=== PATIENT | male | born 1985 | race Caucasian/White ===

== ENCOUNTER 2017-04-06 18:54 | Emergency (ER) | payer MEDICAID, OTHER ==
[~2017-04-06] VITALS: Ht 182.9 cm; Wt 86.2 kg
[~2017-04-06 18:54] MED LIST: DOCU-299 PO; IBUP-2213 PO
[2017-04-06 19:22] VITALS: BP 125/81
--- NOTE | 2017-04-06 21:45 | NUR ---
PT TAKEN TO BED 3
--- NOTE | 2017-04-06 21:47 | NUR ---
31 Y/O M W/C/O RECTAL PAIN X TODAY. HX RECURRENT HEMORRHOIDS.ER MD AT BEDSIDE EVALUATING PT.
--- NOTE | 2017-04-06 21:47 | NUR ---
Dr. García evaluating patient at bedside.
--- NOTE | 2017-04-06 21:53 | NUR ---
RECTAK EXAM performed by DR JOHNSTON with ME at bedside for entire examination. Patient tolerated procedure WELL. Patient assisted to position of comfort after examination.
--- NOTE | 2017-04-06 22:10 | NUR ---
Patient discharged with v/s stable. Written and verbal after care instructions given and explained. Patient alert, oriented and verbalized understanding of instructions. Ambulatory with steady gait. All questions addressed prior to discharge. ID band removed. Patient advised to follow up with PMD. Rx of LEONIE HEMORRHOID RECTAL SUPPOSITIRY, NAPROSYN 500 MG given. Patient educated on indication of medication including possible reaction and side effects. Opportunity to ask questions provided and answered.
[2017-04-06 22:12] VITALS: BP 125/81
== END 2017-04-06 22:10 | disposition home or self-care (01) ==
LOC: MED 18:54
DX: K64.8 Other hemorrhoids (principal); Z79.899 Other long term (current) drug therapy
CPT/HCPCS: 99283

== ENCOUNTER 2022-07-20 20:14 | Emergency (ER) | payer OTHER ==
[~2022-07-20] VITALS: Ht 182.9 cm; Wt 89.4 kg
[2022-07-20 20:21] VITALS: BP 165/96
--- NOTE | 2022-07-20 20:30 | NUR ---
PT TO LOBBY
--- NOTE | 2022-07-20 20:31 | NUR ---
CALLED [facility]. PER DISPATCHER WILL HAVE SOMEONE COME OUT.
--- NOTE | 2022-07-20 20:57 | NUR ---
[facility] PD WITH PT
--- NOTE | 2022-07-20 21:00 | NUR ---
PT TAKEN TO CHAIR
--- NOTE | 2022-07-20 22:24 | NUR ---
Pt moved from chair to bed 5
--- NOTE | 2022-07-20 22:44 | NUR ---
pt is awake and alert. he is on monitor by pd for agressive behaviour. ambulatory and room air
[2022-07-20] MEDS ORDERED: LID5T TP (22:58)
[2022-07-20] MEDS ORDERED: ACET-9527 PO (22:58)
[2022-07-20] MEDS ORDERED: IBUP-2213 PO (22:58)
[2022-07-20] MEDS ORDERED: HYDROcodone/APAP 5/325 MG 1 TAB TAB PO ONE (23:00)
--- NOTE | 2022-07-20 23:10 | NUR ---
Patient discharged with v/s stable. Written and verbal after care instructions given and explained. Patient verbalized understanding. Ambulatory with steady gait. All questions addressed prior to discharge. Advised to follow up with PMD.
[2022-07-20 23:11] VITALS: BP 165/96
== END 2022-07-20 23:10 | disposition home or self-care (01) ==
LOC: MED 20:14
DX: S20.20XA Contusion of thorax, unspecified, initial encounter (principal); Z79.899 Other long term (current) drug therapy; Y04.0XXA Assault by unarmed brawl or fight, initial encounter; Y93.89 Activity, other specified; Y92.89 Other specified places as the place of occurrence of the external cause; Y99.8 Other external cause status
CPT/HCPCS: 70450; 71045; 99284

== ENCOUNTER 2023-12-02 12:21 | Emergency (ER) | payer OTHER ==
[~2023-12-02] VITALS: Ht 182.9 cm; Wt 90.7 kg
[~2023-12-02 12:21] MED LIST changes: +ACET-9527 PO; +LID5T TP
[2023-12-02 12:56] VITALS: BP 162/114; PULSE 105; RESP 18; TEMP 97.6; O2SAT 98
[2023-12-02 13:55] LABS: BASOPHILS # (AUTO) 0.1 K/uL (0.00-0.22); BASOPHILS % (AUTO) 0.8 % (0.0-2.0); EOSINOPHILS # (AUTO) 0.2 K/uL (0-0.4); EOSINOPHILS % (AUTO) 3.1 % (0.0-4.0); HEMATOCRIT 45.7 % (36-52); LYMPHOCYTES # (AUTO) 1.6 K/uL (2.0-11.5); LYMPHOCYTES % (AUTO) 24.3 % (20.5-51.1); MEAN CORPUSCULAR HEMOGLOBIN 33 pg (27-31); MEAN CORPUSCULAR HGB CONC 35 g/dL (33-37); MEAN CORPUSCULAR VOLUME 95.1 fL (80-94); MONOCYTES # (AUTO) 0.4 K/uL (0.8-1.0); MONOCYTES % (AUTO) 5.8 % (1.7-9.3); NEUTROPHILS # (AUTO) 4.4 K/uL (1.8-7.7); PLATELET COUNT (AUTO) 257 K/uL (140-450); RED CELL DISTRIBUTION WIDTH 12.3 % (11.6-13.7); WHITE BLOOD COUNT (AUTO) 6.6 K/uL (4.8-10.8)
[2023-12-02] MEDS: NACL 0.9% 1,000 ML IV ONE (13:59)
[2023-12-02 14:06] LABS: ANION GAP 15.4 (8-16); CALCIUM 8.7 mg/dL (8.5-10.1); CARBON DIOXIDE 24.7 mmol/L (21-32); CREATININE 0.8 mg/dL (0.6-1.3); POTASSIUM 4.1 mmol/L (3.5-5.1)
[2023-12-02 15:36] VITALS: BP 124/82; PULSE 70; RESP 18; TEMP 98; O2SAT 99
== END 2023-12-02 15:36 | disposition home or self-care (01) ==
LOC: MED 12:21
DX: E86.0 Dehydration (principal); I10 Essential (primary) hypertension; Z79.1 Long term (current) use of non-steroidal anti-inflammatories (NSAID); Z79.899 Other long term (current) drug therapy
CPT/HCPCS: 36415; 80048; 85025; 96360; 99283; J7030

== ENCOUNTER 2024-03-08 10:39 | Emergency (ER) | payer OTHER ==
[~2024-03-08] VITALS: Ht 180.3 cm; Wt 90.7 kg
[2024-03-08 10:57] VITALS: BP 138/71; PULSE 99; RESP 19; TEMP 97.6; O2SAT 98
[2024-03-08] MEDS ORDERED: NAPR-1704 PO (11:56)
[2024-03-08] MEDS: IBUPROFEN 400 MG TAB PO ONE (11:59)
[2024-03-08 12:04] VITALS: BP 135/86; PULSE 87; RESP 18; TEMP 97.6; O2SAT 99
== END 2024-03-08 12:04 | disposition home or self-care (01) ==
LOC: MED 10:39
DX: S39.012A Strain of muscle, fascia and tendon of lower back, initial encounter (principal); S16.1XXA Strain of muscle, fascia and tendon at neck level, initial encounter; S30.1XXA Contusion of abdominal wall, initial encounter; S40.811A Abrasion of right upper arm, initial encounter; I10 Essential (primary) hypertension; F12.90 Cannabis use, unspecified, uncomplicated; F17.200 Nicotine dependence, unspecified, uncomplicated; Z79.1 Long term (current) use of non-steroidal anti-inflammatories (NSAID); Z79.899 Other long term (current) drug therapy; V49.9XXA Car occupant (driver) (passenger) injured in unspecified traffic accident, initial encounter; Y93.89 Activity, other specified; Y92.89 Other specified places as the place of occurrence of the external cause; Y99.8 Other external cause status
CPT/HCPCS: 99284

== ENCOUNTER 2024-04-26 00:25 | Emergency (ER) | payer OTHER ==
[~2024-04-26] VITALS: Ht 182.9 cm; Wt 86.2 kg
[~2024-04-26 00:25] MED LIST changes: +NAPR-1704 PO
[2024-04-26 00:37] VITALS: BP 130/91; PULSE 72; RESP 16; TEMP 97.8; O2SAT 97
[2024-04-26] MEDS ORDERED: IBUP-2213 PO (02:01)
[2024-04-26] MEDS: KETOROLAC 30 MG/ML VIAL IM ONE (02:11)
== END 2024-04-26 02:13 | disposition home or self-care (01) ==
LOC: MED 00:25
DX: R51.9 Headache, unspecified (principal); I10 Essential (primary) hypertension; R11.2 Nausea with vomiting, unspecified; Z79.899 Other long term (current) drug therapy
CPT/HCPCS: 70450; 96372; 99285; J1885